=== PATIENT | female | born 1990 | race Caucasian/White ===

== ENCOUNTER 2017-02-14 09:20 | Emergency (ER) | payer OTHER, MEDICAID ==
[~2017-02-14] VITALS: Ht 167.6 cm; Wt 47.2 kg
[~2017-02-14 09:20] MED LIST: ACYCLOVIR 400400 MG PO; NAPROSYN500 MG PO; NOHOMEMEDICATIONS; PRILOSEC 20 MG20 MG PO
[2017-02-14 09:48] VITALS: BP 112/72
== END 2017-02-14 09:49 | disposition home or self-care (01) ==
LOC: M.ERS 09:20
DX: Z71.1 Person with feared health complaint in whom no diagnosis is made (principal)

== ENCOUNTER 2017-08-18 11:14 | Emergency (ER) | payer OTHER, MEDICAID ==
[~2017-08-18] VITALS: Ht 165.1 cm; Wt 50.4 kg
[2017-08-18 11:40] VITALS: BP 104/60
== END 2017-08-18 11:41 | disposition home or self-care (01) ==
LOC: M.ERS 11:14
DX: J30.2 Other seasonal allergic rhinitis (principal)

== ENCOUNTER 2017-11-05 10:10 | Emergency (ER) | payer OTHER ==
[~2017-11-05] VITALS: Ht 170.2 cm; Wt 47.6 kg
[2017-11-05 10:26] LABS: URINE BILIRUBIN NEGATIVE (Negative); URINE BLOOD NEGATIVE (Negative); URINE CLARITY CLEAR; URINE COLOR YELLOW; URINE GLUCOSE-RANDOM NEGATIVE (Negative); URINE KETONES NEGATIVE (Negative); URINE LEUKOCYTES-REFLEX TRACE (Negative); URINE NITRITE-REFLEX NEGATIVE (Negative); URINE PROTEIN NEGATIVE (Negative); URINE UROBILINOGEN 0.2 E.U./dl (0.2-1.0)
[2017-11-05 10:39] LABS: CASTS None Seen /LPF (None Seen); MUCUS None Seen strn/LPF (None Seen); SQUAMOUS 0-3 Few /LPF (0-3); URINE WBC-REFLEX 0-5 Rare /HPF (0-5)
[2017-11-05 10:40] LABS: BACTERIA-REFLEX None Seen /HPF (None Seen); CRYSTALS None Seen /LPF (None Seen); URINE RBC None Seen /HPF (0-2)
[2017-11-05 10:55] LABS: INFLUENZA A ANTIGEN None Detected (None Detect); INFLUENZA B ANTIGEN None Detected (None Detect)
[2017-11-05 11:01] VITALS: BP 126/79
== END 2017-11-05 11:02 | disposition home or self-care (01) ==
LOC: M.ERS 10:10
PROVIDERS: Nurse Practitioner Family
DX: J02.0 Streptococcal pharyngitis (principal); H92.03 Otalgia, bilateral; R50.9 Fever, unspecified

== ENCOUNTER 2018-01-13 19:42 | Emergency (ER) | payer OTHER ==
[~2018-01-13] VITALS: Ht 167.6 cm; Wt 47.6 kg
[2018-01-13 20:05] LABS: ABSOLUTE EOSINOPHILS 0.1 thou/uL (0.0-0.7); ABSOLUTE LYMPHOCYTES 1.2 thou/uL (0.8-5.3); ABSOLUTE MONOCYTES 0.7 thou/uL (0.0-1.2); ABSOLUTE NEUTROPHILS 5.7 thou/uL (1.6-8.1); BASOPHILS 0.3 %; EOSINOPHILS 0.7 %; HEMATOCRIT 42.2 % (37.0-47.0); HEMOGLOBIN 14.2 gm/dL (12.0-15.0); LYMPHOCYTES 15.1 %; MCH 29.5 pg (26.0-34.0); MCHC 33.7 g/dL (28.0-37.0); MCV 87.3 fL (80.0-100.0); MONOCYTES 9.3 %; MPV 8.3 fl. (7.2-11.1); NUCLEATED RBCS 0 /100WBC; PLATELET COUNT* 233 thou/uL (150-400); POLYS 74.6 %; RBC 4.83 mil/uL (4.20-5.00); RDW-CV 13.1 % (10.5-14.5); WBC 7.6 thou/uL (4.0-11.0)
[2018-01-13 20:16] LABS: ANION GAP 7 mmol/L (7-16); BUN 10 mg/dL (7-18); CALCIUM 8.9 mg/dL (8.5-10.1); CHLORIDE 104 mmol/L (98-107); CO2 28 mmol/L (21-32); GLUCOSE 79 mg/dL (70-99); SODIUM 139 mmol/L (136-145)
[2018-01-13 20:23] LABS: ALBUMIN 4.2 g/dL (3.4-5.0); ALKALINE PHOSPHATASE 81 U/L (46-116); LIPASE 218 U/L (73-393); MAGNESIUM 1.9 mg/dL (1.8-2.4); SGOT 14 U/L (15-37); SGPT 15 U/L (30-65); TOTAL BILIRUBIN 0.9 mg/dL (<0.1-1.0); TOTAL PROTEIN 7.9 g/dL (6.4-8.2); TROPONIN-I LEVEL <0.06 ng/mL (<0.06)
[2018-01-13] MEDS ORDERED: HYDROCODONE-AP1 EAC6 PO (21:06)
[2018-01-13 21:17] VITALS: BP 107/67
--- NOTE | 2018-01-14 15:39 | EKG ---
[place] [address] ELECTROCARDIOGRAM REPORT Name: PARIS GIANG Room: [facility]#: [id number] Admission: 01/13/18 Attend Phys: Discharge: 01/13/18 Date of : [birth year] Report #: [id number] THIS REPORT FOR: //name// [facility] ED Test Date: 2018-01-13 Test Time: 19:48:42 Pat Name: PARIS GIANG Department: Room: Gender: F Cotton Factor: ROSANNA : 1990 Requested By: Adriano Brock Order Number: [id number] MD: Junito Blanc Measurements Intervals [place] Rate: 109 P: 18 PA: 144 QRS: 53 QRSD: 88 T: 39 QT: 323 QTc: 436 Interpretive Statements Sinus tachycardia RSR' in V1 or V2, right VCD or RVH Compared to ECG 03/14/2013 19:50:02 Right ventricular hypertrophy now present RSR' in V1 or V2 now present Sinus rhythm no longer present Sinus arrhythmia no longer present Electronically Signed On 01-14-2018 15:39:06 [employer] by Junito Blanc [email or web address] <ELECTRONICALLY SIGNED> By: Junito Blanc MD, FACC 01/14/18 1539 [id number] 47 Junito Blanc MD, FACC /EPI
== END 2018-01-13 21:18 | disposition home or self-care (01) ==
LOC: M.ERS 19:42
PROVIDERS: Emergency Medicine Emergency Medical Services
DX: M94.0 Chondrocostal junction syndrome [Tietze] (principal)

== ENCOUNTER 2018-01-16 12:37 | Emergency (ER) | payer OTHER ==
[~2018-01-16] VITALS: Ht 167.6 cm; Wt 47.6 kg
[~2018-01-16 12:37] MED LIST changes: +HYDROCODONE-AP1 EAC6 PO
[2018-01-16 14:07] LABS: ABSOLUTE LYMPHOCYTES 1.2 thou/uL (0.8-5.3); ABSOLUTE MONOCYTES 0.4 thou/uL (0.0-1.2); ABSOLUTE NEUTROPHILS 3.6 thou/uL (1.6-8.1); BASOPHILS 0.1 %; EOSINOPHILS 0.9 %; HEMATOCRIT 43.7 % (37.0-47.0); HEMOGLOBIN 14.5 gm/dL (12.0-15.0); LYMPHOCYTES 22.4 %; MCH 29.4 pg (26.0-34.0); MCHC 33.3 g/dL (28.0-37.0); MCV 88.4 fL (80.0-100.0); MONOCYTES 7.3 %; MPV 8.8 fl. (7.2-11.1); NUCLEATED RBCS 0 /100WBC; PLATELET COUNT* 248 thou/uL (150-400); POLYS 69.3 %; RBC 4.94 mil/uL (4.20-5.00); RDW-CV 12.9 % (10.5-14.5); WBC 5.2 thou/uL (4.0-11.0)
[2018-01-16 14:09] LABS: ANION GAP 8 mmol/L (7-16); BUN 12 mg/dL (7-18); CHLORIDE 104 mmol/L (98-107); CO2 27 mmol/L (21-32); CREATININE 0.9 mg/dL (0.6-1.3); GLUCOSE 87 mg/dL (70-99); POTASSIUM 3.3 mmol/L (3.5-5.1); SODIUM 139 mmol/L (136-145)
[2018-01-16 14:14] LABS: CALCIUM < 5.0 mg/dL (8.5-10.1)
[2018-01-16 14:16] LABS: ALBUMIN 4.1 g/dL (3.4-5.0); ALKALINE PHOSPHATASE 75 U/L (46-116); SGOT 16 U/L (15-37); SGPT 15 U/L (30-65); TOTAL BILIRUBIN 0.5 mg/dL (<0.1-1.0); TROPONIN-I LEVEL <0.06 ng/mL (<0.06)
[2018-01-16] MEDS ORDERED: OMEPRAZOLE 20 M20 M1 PO (15:11)
[2018-01-16] MEDS ORDERED: PEPCID20 MG PO (15:11)
[2018-01-16 15:23] VITALS: BP 109/77
--- NOTE | 2018-01-16 16:27 | EKG ---
[place] [address] ELECTROCARDIOGRAM REPORT Name: PARIS GIANG Room: [facility]#: [id number] Admission: 01/16/18 Attend Phys: Discharge: 01/16/18 Date of : [birth year] Report #: [id number] THIS REPORT FOR: //name// [facility] ED Test Date: 2018-01-16 Test Time: 13:30:55 Pat Name: PARIS GIANG Department: Room: Gender: F Tile Fitter: Ike MCDERMOTT : 1990 Requested By: Kristine Rosenthal Order Number: [id number] MD: Junito Blanc Measurements Intervals [place] Rate: 76 P: 18 NC: 140 QRS: 57 QRSD: 93 T: 40 QT: 381 QTc: 429 Interpretive Statements Sinus rhythm RSR' in V1 or V2, right VCD or RVH Compared to ECG 01/13/2018 19:48:42 Sinus tachycardia no longer present Electronically Signed On 01-16-2018 16:27:22 [employer] by Junito Blanc [email or web address] <ELECTRONICALLY SIGNED> By: Junito Blanc MD, [facility] 01/16/18 1627 1330 1330 Junito Blanc MD, [facility] /EPI
== END 2018-01-16 15:25 | disposition home or self-care (01) ==
LOC: M.ERS 12:37
PROVIDERS: Physician Assistant
DX: K21.9 Gastro-esophageal reflux disease without esophagitis (principal); M94.0 Chondrocostal junction syndrome [Tietze]

== ENCOUNTER 2018-07-10 17:33 | Emergency (ER) | payer OTHER ==
[~2018-07-10] VITALS: Ht 167.6 cm; Wt 49.9 kg
[~2018-07-10 17:33] MED LIST changes: +OMEPRAZOLE 20 M20 M1 PO; +PEPCID20 MG PO
[2018-07-10 17:39] VITALS: BP 112/73
[2018-07-10] MEDS ORDERED: AMOXICILLIN875 MG PO (18:12)
== END 2018-07-10 18:19 | disposition home or self-care (01) ==
LOC: M.ERS 17:33
DX: J02.0 Streptococcal pharyngitis (principal); H66.92 Otitis media, unspecified, left ear

== ENCOUNTER 2018-10-05 20:47 | Emergency (ER) | payer OTHER ==
[~2018-10-05] VITALS: Ht 167.6 cm; Wt 49.9 kg
[~2018-10-05 20:47] MED LIST changes: +AMOXICILLIN875 MG PO
[2018-10-05 21:04] LABS: URINE BILIRUBIN NEGATIVE (Negative); URINE BLOOD NEGATIVE (Negative); URINE CLARITY CLEAR; URINE COLOR YELLOW; URINE GLUCOSE-RANDOM NEGATIVE (Negative); URINE KETONES NEGATIVE (Negative); URINE NITRITE-REFLEX NEGATIVE (Negative); URINE PROTEIN TRACE (Negative); URINE SPECIFIC GRAVITY 1.015 (1.005-1.030)
[2018-10-05 21:05] LABS: URINE LEUKOCYTES-REFLEX 2+ (Negative)
[2018-10-05 21:08] LABS: BACTERIA-REFLEX >30 Many /HPF (None Seen); CASTS None Seen /LPF (None Seen); CRYSTALS None Seen /LPF (None Seen); MUCUS 0-3 Light strn/LPF (None Seen); SQUAMOUS 0-3 Few /LPF (0-3); URINE RBC 3-10 Few /HPF (0-2); URINE WBC-REFLEX >25 Many /HPF (0-5); WBC CLUMPS Few (None Seen)
[2018-10-05 21:48] LABS: ABSOLUTE EOSINOPHILS 0.1 thou/uL (0.0-0.7); ABSOLUTE LYMPHOCYTES 1.9 thou/uL (0.8-5.3); ABSOLUTE MONOCYTES 0.5 thou/uL (0.0-1.2); ABSOLUTE NEUTROPHILS 3.1 thou/uL (1.6-8.1); BASOPHILS 0.3 %; EOSINOPHILS 2.2 %; HEMATOCRIT 40.2 % (37.0-47.0); HEMOGLOBIN 13.5 gm/dL (12.0-15.0); MCH 29.5 pg (26.0-34.0); MCHC 33.6 g/dL (28.0-37.0); MONOCYTES 8.1 %; MPV 8.3 fl. (7.2-11.1); NUCLEATED RBCS 0 /100WBC; PLATELET COUNT* 226 thou/uL (150-400); POLYS 55.4 %; RBC 4.57 mil/uL (4.20-5.00); RDW-CV 13.6 % (10.5-14.5); WBC 5.7 thou/uL (4.0-11.0)
[2018-10-05 21:56] LABS: CALCIUM 9.2 mg/dL (8.5-10.1); CREATININE 0.9 mg/dL (0.6-1.3); POTASSIUM 3.5 mmol/L (3.5-5.1)
[2018-10-05] MEDS ORDERED: ZOFRAN ODT4 MG PO (22:03)
[2018-10-05] MEDS ORDERED: CARAFATE 1 GM TA1 GM PO (22:03)
[2018-10-05] MEDS ORDERED: OMEPRAZOLE 20 M20 M1 PO (22:03)
[2018-10-05] MEDS ORDERED: MACROBID 100 M100 M1 PO (22:03)
[2018-10-05 22:14] VITALS: BP 107/73
== END 2018-10-05 22:14 | disposition home or self-care (01) ==
LOC: M.ERS 20:47
PROVIDERS: Emergency Medicine
DX: N39.0 Urinary tract infection, site not specified (principal); R12 Heartburn

== ENCOUNTER 2018-12-06 15:59 | Emergency (ER) | payer OTHER ==
[~2018-12-06] VITALS: Ht 167.6 cm; Wt 49.9 kg
[~2018-12-06 15:59] MED LIST changes: +CARAFATE 1 GM TA1 GM PO; +MACROBID 100 M100 M1 PO; +ZOFRAN ODT4 MG PO
[2018-12-06 16:40] LABS: URINE CLARITY CLOUDY; URINE COLOR ORANGE; URINE SPECIFIC GRAVITY 1.026 (1.005-1.030)
[2018-12-06 16:42] LABS: MUCUS 4-6 Moderate strn/LPF (None Seen); SQUAMOUS >10 Many /LPF (0-3)
[2018-12-06 16:43] LABS: CASTS None Seen /LPF (None Seen); CRYSTALS None Seen /LPF (None Seen); URINE RBC 0-2 Rare /HPF (0-2); URINE WBC-REFLEX >25 Many /HPF (0-5); WBC CLUMPS Few (None Seen)
[2018-12-06 16:44] LABS: BACTERIA-REFLEX 1-9 Few /HPF (None Seen)
[2018-12-06] MEDS ORDERED: MACROBID 100 M100 M2 PO (17:06)
[2018-12-06 17:19] VITALS: BP 125/80
== END 2018-12-06 17:20 | disposition home or self-care (01) ==
LOC: M.ERS 15:59
PROVIDERS: Nurse Practitioner Family
DX: N39.0 Urinary tract infection, site not specified (principal)

== ENCOUNTER 2019-01-14 16:36 | Emergency (ER) | payer OTHER ==
[~2019-01-14] VITALS: Ht 167.6 cm; Wt 49.9 kg
[~2019-01-14 16:36] MED LIST changes: +MACROBID 100 M100 M2 PO
[2019-01-14] MEDS ORDERED: NORCO 5-325 TA1 EAC1 PO (16:59)
[2019-01-14] MEDS ORDERED: ZANAFLEX4 MG PO (19:35)
[2019-01-14] MEDS ORDERED: MEDROLDOSEPACK PO (19:35)
[2019-01-14] MEDS ORDERED: IBUPROFEN 800800 M1 PO (19:35)
[2019-01-14 19:44] VITALS: BP 100/71
== END 2019-01-14 19:45 | disposition home or self-care (01) ==
LOC: M.ERS 16:36
DX: M54.5 Low back pain (principal)

== ENCOUNTER 2019-01-25 11:05 | Emergency (ER) | payer OTHER ==
[~2019-01-25] VITALS: Ht 167.6 cm; Wt 49.9 kg
[~2019-01-25 11:05] MED LIST changes: +IBUPROFEN 800800 M1 PO; +MEDROLDOSEPACK PO; +NORCO 5-325 TA1 EAC1 PO; +ZANAFLEX4 MG PO
[2019-01-25 11:15] VITALS: BP 103/79
== END 2019-01-25 13:08 | disposition home or self-care (01) ==
LOC: M.ERS 11:05
DX: Z04.89 Encounter for examination and observation for other specified reasons (principal)

== ENCOUNTER 2019-02-02 11:33 | Emergency (ER) | payer OTHER ==
[~2019-02-02] VITALS: Ht 167.6 cm; Wt 49.9 kg
[2019-02-02 11:47] LABS: URINE BILIRUBIN NEGATIVE (Negative); URINE BLOOD NEGATIVE (Negative); URINE CLARITY CLEAR; URINE COLOR YELLOW; URINE GLUCOSE-RANDOM NEGATIVE (Negative); URINE KETONES NEGATIVE (Negative); URINE LEUKOCYTES-REFLEX 1+ (Negative); URINE NITRITE-REFLEX NEGATIVE (Negative); URINE PROTEIN NEGATIVE (Negative); URINE SPECIFIC GRAVITY <= 1.005 (1.005-1.030); URINE UROBILINOGEN 0.2 E.U./dl (0.2-1.0)
[2019-02-02 12:01] LABS: BACTERIA-REFLEX 1-9 Few /HPF (None Seen); CASTS None Seen /LPF (None Seen); CRYSTALS None Seen /LPF (None Seen); MUCUS None Seen strn/LPF (None Seen); SQUAMOUS 0-3 Few /LPF (0-3); URINE RBC 0-2 Rare /HPF (0-2); URINE WBC-REFLEX 0-5 Rare /HPF (0-5)
[2019-02-02 12:31] LABS: ABSOLUTE EOSINOPHILS 0.1 thou/uL (0.0-0.7); ABSOLUTE LYMPHOCYTES 1.1 thou/uL (0.8-5.3); ABSOLUTE MONOCYTES 0.5 thou/uL (0.0-1.2); ABSOLUTE NEUTROPHILS 3.9 thou/uL (1.6-8.1); BASOPHILS 0.2 %; EOSINOPHILS 1.3 %; HEMATOCRIT 40.7 % (37.0-47.0); HEMOGLOBIN 13.8 gm/dL (12.0-15.0); LYMPHOCYTES 20.3 %; MCH 29.2 pg (26.0-34.0); MCHC 33.9 g/dL (28.0-37.0); MCV 86.3 fL (80.0-100.0); MONOCYTES 8.4 %; MPV 8.5 fl. (7.2-11.1); NUCLEATED RBCS 0 /100WBC; PLATELET COUNT* 202 thou/uL (150-400); POLYS 69.8 %; RBC 4.71 mil/uL (4.20-5.00); RDW-CV 13.7 % (10.5-14.5); WBC 5.5 thou/uL (4.0-11.0)
[2019-02-02 12:35] LABS: CALCIUM 9.1 mg/dL (8.5-10.1); CREATININE 0.9 mg/dL (0.6-1.3); POTASSIUM 3.8 mmol/L (3.5-5.1)
[2019-02-02 12:39] LABS: TOTAL BILIRUBIN 0.8 mg/dL (<0.1-1.0); TOTAL PROTEIN 7.7 g/dL (6.4-8.2)
[2019-02-02] MEDS ORDERED: CIPRO500 M1 PO (14:14)
[2019-02-02] MEDS ORDERED: PREDNISONE 10 M10 MG PO (14:14)
[2019-02-02] MEDS ORDERED: BENTYL 20 MG TA20 M1 PO (14:14)
[2019-02-02 14:22] VITALS: BP 102/69
== END 2019-02-02 14:24 | disposition home or self-care (01) ==
LOC: M.ERS 11:33
PROVIDERS: Physician Assistant
DX: K52.9 Noninfective gastroenteritis and colitis, unspecified (principal)

== ENCOUNTER 2019-04-28 12:49 | Emergency (ER) | payer OTHER ==
[~2019-04-28] VITALS: Ht 167.6 cm; Wt 49.9 kg
[~2019-04-28 12:49] MED LIST changes: +BENTYL 20 MG TA20 M1 PO; +CIPRO500 M1 PO; +PREDNISONE 10 M10 MG PO
[2019-04-28 13:18] LABS: INFLUENZA A ANTIGEN Negative (Negative); INFLUENZA B ANTIGEN Negative (Negative)
[2019-04-28] MEDS ORDERED: MEDROLDOSEPACK PO (13:21)
[2019-04-28 13:31] VITALS: BP 115/70
== END 2019-04-28 13:32 | disposition home or self-care (01) ==
LOC: M.ERS 12:49
PROVIDERS: Nurse Practitioner Family
DX: B34.9 Viral infection, unspecified (principal); M79.18 Myalgia, other site

== ENCOUNTER 2019-09-12 20:27 | Emergency (ER) | payer OTHER ==
[~2019-09-12] VITALS: Ht 167.6 cm; Wt 54.4 kg
[2019-09-12] MEDS ORDERED: AMOXICILLIN 50500 M1 PO (21:35)
[2019-09-12] MEDS ORDERED: TYLENOL WITH CO1 TA1 PO (21:36)
[2019-09-12 21:47] VITALS: BP 104/66
== END 2019-09-12 21:49 | disposition home or self-care (01) ==
LOC: M.ERS 20:27
DX: K01.1 Impacted teeth (principal)

== ENCOUNTER 2020-01-11 09:54 | Emergency (ER) | payer OTHER ==
[~2020-01-11] VITALS: Ht 167.6 cm; Wt 48.5 kg
[~2020-01-11 09:54] MED LIST changes: +AMOXICILLIN 50500 M1 PO; +TYLENOL WITH CO1 TA1 PO
[2020-01-11] MEDS ORDERED: PREDNISONE 20 M20 M1 PO (10:52)
[2020-01-11] MEDS ORDERED: ZPAK PO (10:52)
[2020-01-11 10:57] VITALS: BP 122/80
== END 2020-01-11 10:58 | disposition home or self-care (01) ==
LOC: M.ERS 09:54
DX: U07.1 COVID-19 (principal)

== ENCOUNTER 2020-05-12 18:04 | Emergency (ER) | payer OTHER ==
[~2020-05-12] VITALS: Ht 167.6 cm; Wt 49.9 kg
[~2020-05-12 18:04] MED LIST changes: +PREDNISONE 20 M20 M1 PO; +ZPAK PO
[2020-05-12 19:17] LABS: INFLUENZA A ANTIGEN Negative (Negative); INFLUENZA B ANTIGEN Negative (Negative)
[2020-05-12] MEDS ORDERED: AMOXICILLIN 50500 MG PO (19:25)
[2020-05-12 19:38] VITALS: BP 99/70
== END 2020-05-12 19:39 | disposition home or self-care (01) ==
LOC: M.ERS 18:04
PROVIDERS: Nurse Practitioner Family
DX: J02.9 Acute pharyngitis, unspecified (principal); Z20.822 Contact with and (suspected) exposure to COVID-19

== ENCOUNTER 2020-06-29 21:08 | Emergency (ER) | payer OTHER ==
[~2020-06-29] VITALS: Ht 167.6 cm; Wt 49.4 kg
[~2020-06-29 21:08] MED LIST changes: +AMOXICILLIN 50500 MG PO
[2020-06-29 22:19] LABS: INFLUENZA A ANTIGEN Negative (Negative); INFLUENZA B ANTIGEN Negative (Negative)
[2020-06-29 22:35] VITALS: BP 122/86
== END 2020-06-29 22:35 | disposition home or self-care (01) ==
LOC: M.ERS 21:08
PROVIDERS: Personal Emergency Response Attendant
DX: J02.8 Acute pharyngitis due to other specified organisms (principal); B97.89 Other viral agents as the cause of diseases classified elsewhere; Z20.822 Contact with and (suspected) exposure to COVID-19

== ENCOUNTER 2020-11-29 19:50 | Emergency (ER) | payer OTHER ==
[~2020-11-29] VITALS: Ht 167.6 cm; Wt 49.9 kg
[2020-11-29 20:45] VITALS: BP 109/68
== END 2020-11-29 20:45 | disposition home or self-care (01) ==
LOC: M.ERS 19:50
DX: S51.811A Laceration without foreign body of right forearm, initial encounter (principal); W22.8XXA Striking against or struck by other objects, initial encounter; Y93.89 Activity, other specified; Y92.89 Other specified places as the place of occurrence of the external cause; Y99.8 Other external cause status

== ENCOUNTER 2021-01-30 15:29 | Emergency (ER) | payer OTHER ==
[~2021-01-30] VITALS: Ht 167.6 cm; Wt 50.8 kg
[2021-01-30 16:07] LABS: INFLUENZA A ANTIGEN Negative (Negative); INFLUENZA B ANTIGEN Negative (Negative)
[2021-01-30 16:11] VITALS: BP 114/70
[2021-01-30] MEDS ORDERED: TESSALON PERLE100 MG PO (16:11)
== END 2021-01-30 16:27 | disposition home or self-care (01) ==
LOC: M.ERS 15:29
PROVIDERS: Physician Assistant
DX: J06.9 Acute upper respiratory infection, unspecified (principal); Z20.822 Contact with and (suspected) exposure to COVID-19